=== PATIENT | male | born 1985 | race Caucasian/White ===

== ENCOUNTER → 2024-12-01 | Outpatient (CLI) | LOC: M SOG 07:51 | PROVIDERS: ATTEND Physician Assistant | DX: M79.641 Pain in right hand (principal); Z53.9 Procedure and treatment not carried out, unspecified reason ==

== ENCOUNTER → 2025-06-30 | Outpatient (REF) | LOC: M PLAIMG 09:47 | PROVIDERS: ATTEND Internal Medicine | DX: R52 Pain, unspecified (principal) ==